=== PATIENT | female | born 1955 | race Two or more races ===

== ENCOUNTER 2018-03-20 11:54 | Inpatient (IN) | payer OTHER ==
[2018-03-20] VITALS (10 sets, daily range): BP systolic 123–187; BP diastolic 74–104
[~2018-03-20] VITALS: Ht 157.5 cm; Wt 57.5 kg
[2018-03-20] MEDS ORDERED: SODIUM CHLORIDE 0.9% 500 ML IVB ONE (12:08)
[2018-03-20] MEDS ORDERED: LEVOFLOXACIN 500 MG/100 ML PREMIX BAG IV ONE (12:15)
[2018-03-20 13:23] LABS: Partial Thromboplastin Time 22.2 sec (22.64-33.71); Prothrombin Time 10.9 sec (9.37-12.3)
[2018-03-20 13:25] LABS: Calcium 8.7 mg/dL (8.5-10.1); Potassium 3.6 mmol/L (3.5-5.1)
[2018-03-20 13:26] LABS: Blood Alcohol < 3.0 mg/dL (0-5); Magnesium 1.7 mg/dL (1.6-2.6)
[2018-03-20 13:28] LABS: Bilirubin, Total 0.4 mg/dL (0.2-1.0); Total Protein 7.6 g/dL (6.4-8.2)
[2018-03-20 13:29] LABS: Lactic Acid w/Reflex 4.6 mmol/L (0.4-2.0)
[2018-03-20] MEDS ORDERED: cefTRIAXone 1GM/10ml IVPUSH 10 ML IV ONE (13:45)
[2018-03-20] MEDS ORDERED: MORPHINE SULFATE 4 MG/ML SYR/VIAL IV PRN ×2 (13:45)
[2018-03-20] MEDS ORDERED: NITROGLYCERIN 0.4 MG SL TAB SL PRN (13:45)
[2018-03-20] MEDS ORDERED: TEMAZEPAM 15 MG CAP PO PRN (13:45)
[2018-03-20] MEDS ORDERED: ACETAMINOPHEN 500 MG TAB PO PRN (13:45)
[2018-03-20] MEDS ORDERED: PROMETHAZINE HCL 25 MG/ML 1ML IV PRN (13:45)
[2018-03-20] MEDS ORDERED: HYDROcodone-ACET 5/325MG TAB PO PRN (13:45)
[2018-03-20] MEDS ORDERED: LACTULOSE 20Gm/30ML SOLN PO PRN (13:45)
[2018-03-20] MEDS ORDERED: DEXTROSE (50%) 50ML SYRG IV PRN ×2 (13:45→14:00)
[2018-03-20] MEDS ORDERED: LORazepam 0.5 MG TAB PO PRN (13:45)
[2018-03-20 14:07] LABS: Basophils # (auto) 0 uL; Basophils % (auto) 0.1 % (0.0-2.0); Eosinophils # (auto) 0 uL; Hematocrit 39.7 % (36.0-46.0); Hemoglobin 13.2 g/dL (12.2-16.2); Lymphocytes # (auto) 0.7 uL; Lymphocytes % (auto) 3.7 % (10.0-50.0); Mean Corpuscular Hgb Conc. 33.3 g/dL (32.0-36.0); Monocytes # (auto) 0.8 uL; Monocytes % (auto) 4.5 % (0.0-12.0); Neutrophils # (auto) 16.3 uL; Neutrophils % (auto) 91.7 % (37.0-80.0); Platelet Count (auto) 229 10^3/uL (140-450); Red Blood Cells 4.41 10^6/uL (4.0-5.20); Red Cell Distribution Width 12.4 % (11.8-14.3); White Blood Cell 17.7 10^3/uL (4.4-10.8)
[2018-03-20] MEDS: SODIUM CHLORIDE 0.9% 1,000 ML IV SCH ×2 (14:40→23:41)
[2018-03-20] MEDS: ASPirin 81 mg TAB PO ONE ×2 (14:48→18:02)
[2018-03-20] MEDS: InsuLIN REG 1unit/0.01ml Soln (100units/ml) SC SCH ×2 (16:00→20:00)
[2018-03-20] MEDS ORDERED: InsuLIN REG 1unit/0.01ml Soln (100units/ml) SC SCH (16:00)
[2018-03-20 16:01] LABS: Folate (Folic Acid) 6.93 ng/mL (5.38-24)
[2018-03-20] MEDS ORDERED: METF-372 PO (17:01)
[2018-03-20] MEDS ORDERED: CALC600T10 OR (17:01)
[2018-03-20] MEDS ORDERED: CLOP75TA41 PO (17:01)
[2018-03-20] MEDS ORDERED: ATOR1TAB PO (17:01)
[2018-03-20] MEDS ORDERED: GLIP-115 PO (17:01)
[2018-03-20] MEDS ORDERED: METO25TA5 PO (17:01)
[2018-03-20] MEDS ORDERED: ALEN35TA18 PO (17:01)
[2018-03-20] MEDS ORDERED: ASPI81CH43 PO (17:01)
[2018-03-20] MEDS: ENOXAPARIN SOD 40 MG/0.4 ML SYRINGE SC SCH (18:02)
[2018-03-20] MEDS: ACCU-CHEK COMFORT CURVE STRIP VI SCH ×2 (18:03→20:16)
[2018-03-20 18:39] LABS: Urine Bacteria NONE SEEN /hpf (None Seen); Urine Blood 1+ /uL (Negative); Urine Specific Gravity 1.013 (1.001-1.035); Urine WBC 2 /hpf (0 - 5)
[2018-03-20 18:45] LABS: Alcohol, Urine < 3.0 mg/dL (0-5); Amphetamine Screen, Urine NEGATIVE (NEGATIVE); Barbiturate Scree,Urine NEGATIVE (NEGATIVE); Benzodiazephine Screen, Urine NEGATIVE (NEGATIVE); Cannabinoid Screen, Urine NEGATIVE (NEGATIVE); Cocaine Screen, Urine NEGATIVE (NEGATIVE); Opiate Scree,Urine NEGATIVE (NEGATIVE); Phencyclidine Screen, Urine NEGATIVE (NEGATIVE)
[2018-03-20] MEDS ORDERED: LORazepam 2MG/ML-1ML VIAL IV STA (19:02)
[2018-03-20] MEDS ORDERED: LORazepam 2MG/ML-1ML VIAL ONE (19:09)
[2018-03-20] MEDS ORDERED: PHENYTOIN IV DILANTIN 1,000 MG in SODIUM CHL 0.9% 250 ML IV ONE (19:15)
[2018-03-20] MEDS ORDERED: LORazepam 2MG/ML-1ML VIAL IV PRN ×2 (19:15→19:45)
[2018-03-20] MEDS: PHENYTOIN SODIUM 50 MG/ML 2ML VIAL IV SCH (22:13)
[2018-03-20] MEDS: ATORVASTATIN 20 MG TAB PO SCH (22:13)
[2018-03-21] VITALS (24 sets, daily range): BP systolic 99–151; BP diastolic 53–96
[2018-03-21] MEDS: LABETALOL HCL 5 MG/ML ML 20ML VIAL IV PRN (01:40)
[2018-03-21] MEDS: InsuLIN REG 1unit/0.01ml Soln (100units/ml) SC SCH ×6 (04:00→20:15)
[2018-03-21] MEDS: ACCU-CHEK COMFORT CURVE STRIP VI SCH ×6 (04:00→20:15)
[2018-03-21] MEDS: PHENYTOIN SODIUM 50 MG/ML 2ML VIAL IV SCH ×2 (05:52→14:00)
[2018-03-21 07:35] LABS: BUN/Creatinine Ratio 6.6; Calcium 7.8 mg/dL (8.5-10.1); Potassium 3.3 mmol/L (3.5-5.1)
[2018-03-21 07:38] LABS: Bilirubin, Total 0.5 mg/dL (0.2-1.0); Total Protein 7.9 g/dL (6.4-8.2)
[2018-03-21] MEDS ORDERED: cefTRIAXone 1GM/10ml IVPUSH 10 ML IV SCH (09:00)
[2018-03-21] MEDS: ENOXAPARIN SOD 40 MG/0.4 ML SYRINGE SC SCH (10:15)
[2018-03-21] MEDS: ASPirin 81 mg TAB PO SCH (10:15)
[2018-03-21] MEDS: SODIUM CHLORIDE 0.9% 1,000 ML IV SCH (10:24)
[2018-03-21 14:00] LABS: Cholesterol 99 mg/dL (< 200); HDL Cholesterol 38 mg/dL (40-59); LDL Cholesterol 57 mg/dL (< 100); Triglycerides 105 mg/dL (< 150)
[2018-03-21] MEDS: D5W/ SOD CHL 0.9%/KCL 20MEQ 1,000 ML IV SCH ×2 (14:30→22:03)
[2018-03-21] MEDS ORDERED: MORPHINE SULFATE 8mg/ml INJ SDV IV PRN (16:15)
[2018-03-21] MEDS: CLOPIDOGREL BISULFATE 75 MG TAB PO SCH (16:46)
[2018-03-21] MEDS: ATORVASTATIN 20 MG TAB PO SCH (22:04)
[2018-03-22] MEDS: InsuLIN REG 1unit/0.01ml Soln (100units/ml) SC SCH ×6 (04:00→19:55)
[2018-03-22] MEDS: ACCU-CHEK COMFORT CURVE STRIP VI SCH ×6 (04:39→19:54)
[2018-03-22 05:00] VITALS: BP 135/64
[2018-03-22 06:57] LABS: Basophils # (auto) 0 uL; Basophils % (auto) 0.4 % (0.0-2.0); Eosinophils # (auto) 0.1 uL; Eosinophils % (auto) 0.7 % (0.0-7.0); Hematocrit 35.2 % (36.0-46.0); Hemoglobin 12.1 g/dL (12.2-16.2); Lymphocytes # (auto) 1.7 uL; Lymphocytes % (auto) 20.1 % (10.0-50.0); Mean Corpuscular Hemoglobin 30.1 pg (28.0-32.0); Mean Corpuscular Hgb Conc. 34.3 g/dL (32.0-36.0); Mean Corpuscular Volume 87.6 fL (80.0-100.0); Monocytes # (auto) 0.7 uL; Monocytes % (auto) 8.1 % (0.0-12.0); Neutrophils % (auto) 70.7 % (37.0-80.0); Platelet Count (auto) 240 10^3/uL (140-450); Red Blood Cells 4.02 10^6/uL (4.0-5.20); Red Cell Distribution Width 12.3 % (11.8-14.3); White Blood Cell 8.4 10^3/uL (4.4-10.8)
[2018-03-22 07:19] LABS: BUN/Creatinine Ratio 5.3; Calcium 7.5 mg/dL (8.5-10.1); Magnesium 1.6 mg/dL (1.6-2.6); Potassium 3.1 mmol/L (3.5-5.1)
[2018-03-22 09:00] VITALS: BP 125/75
[2018-03-22] MEDS: ENOXAPARIN SOD 40 MG/0.4 ML SYRINGE SC SCH (09:53)
[2018-03-22] MEDS: POTASSIUM CHL 20 Meq TABLET PO SCH ×2 (09:53→21:34)
[2018-03-22] MEDS: CLOPIDOGREL BISULFATE 75 MG TAB PO SCH (09:53)
[2018-03-22] MEDS: ASPirin 81 mg TAB PO SCH (09:53)
[2018-03-22 16:55] VITALS: BP 144/69
[2018-03-22] MEDS: D5W/ SOD CHL 0.9%/KCL 20MEQ 1,000 ML IV SCH ×2 (18:00→18:20)
[2018-03-22] MEDS: ATORVASTATIN 20 MG TAB PO SCH (21:33)
[2018-03-22 22:07] VITALS: BP 140/81
[2018-03-23] MEDS: ACCU-CHEK COMFORT CURVE STRIP VI SCH ×7 (00:09→23:56)
[2018-03-23] MEDS: D5W/ SOD CHL 0.9%/KCL 20MEQ 1,000 ML IV SCH ×2 (03:05→21:14)
[2018-03-23] MEDS: InsuLIN REG 1unit/0.01ml Soln (100units/ml) SC SCH ×7 (03:58→23:56)
[2018-03-23 05:37] VITALS: BP 148/65
[2018-03-23 05:59] LABS: Basophils # (auto) 0.1 uL; Basophils % (auto) 0.8 % (0.0-2.0); Eosinophils # (auto) 0.2 uL; Hemoglobin 12.2 g/dL (12.2-16.2); Lymphocytes # (auto) 2.5 uL; Mean Corpuscular Hemoglobin 30.5 pg (28.0-32.0); Mean Corpuscular Hgb Conc. 34.8 g/dL (32.0-36.0); Mean Corpuscular Volume 87.6 fL (80.0-100.0); Monocytes # (auto) 0.7 uL; Monocytes % (auto) 8.9 % (0.0-12.0); Neutrophils # (auto) 3.9 uL; Neutrophils % (auto) 53.3 % (37.0-80.0); Platelet Count (auto) 254 10^3/uL (140-450); Red Cell Distribution Width 12.8 % (11.8-14.3); White Blood Cell 7.3 10^3/uL (4.4-10.8)
[2018-03-23 06:22] LABS: BUN/Creatinine Ratio 4.2; Calcium 8.2 mg/dL (8.5-10.1); Potassium 4.4 mmol/L (3.5-5.1)
[2018-03-23 09:00] VITALS: BP 138/78
[2018-03-23] MEDS: CLOPIDOGREL BISULFATE 75 MG TAB PO SCH (10:06)
[2018-03-23] MEDS: ASPirin 81 mg TAB PO SCH (10:06)
[2018-03-23] MEDS: ENOXAPARIN SOD 40 MG/0.4 ML SYRINGE SC SCH (10:06)
[2018-03-23 13:00] VITALS: BP 163/79
[2018-03-23 17:00] VITALS: BP 164/83
[2018-03-23 21:05] VITALS: BP 145/91
[2018-03-23] MEDS: PHENYTOIN SODIUM 100 MG CAP PO SCH (22:04)
[2018-03-23] MEDS: ATORVASTATIN 20 MG TAB PO SCH (22:04)
[2018-03-24] MEDS: InsuLIN REG 1unit/0.01ml Soln (100units/ml) SC SCH ×5 (04:30→19:54)
[2018-03-24] MEDS: ACCU-CHEK COMFORT CURVE STRIP VI SCH ×5 (04:30→19:53)
[2018-03-24 05:15] VITALS: BP 160/91
[2018-03-24] MEDS: LABETALOL HCL 5 MG/ML ML 20ML VIAL IV PRN ×3 (06:28→22:05)
[2018-03-24 06:33] LABS: Basophils # (auto) 0.1 uL; Basophils % (auto) 0.9 % (0.0-2.0); Eosinophils # (auto) 0.3 uL; Eosinophils % (auto) 4.2 % (0.0-7.0); Hematocrit 36.7 % (36.0-46.0); Hemoglobin 12.9 g/dL (12.2-16.2); Lymphocytes # (auto) 2.5 uL; Lymphocytes % (auto) 38.5 % (10.0-50.0); Mean Corpuscular Hemoglobin 30.9 pg (28.0-32.0); Mean Corpuscular Hgb Conc. 35.1 g/dL (32.0-36.0); Mean Corpuscular Volume 88.1 fL (80.0-100.0); Monocytes # (auto) 0.5 uL; Neutrophils # (auto) 3.1 uL; Neutrophils % (auto) 48.4 % (37.0-80.0); Nucleated Red Blood Cells % 0.1 %; Platelet Count (auto) 266 10^3/uL (140-450); Red Blood Cells 4.17 10^6/uL (4.0-5.20); Red Cell Distribution Width 12.6 % (11.8-14.3); White Blood Cell 6.4 10^3/uL (4.4-10.8)
[2018-03-24 06:48] LABS: Calcium 8.5 mg/dL (8.5-10.1); Potassium 4.1 mmol/L (3.5-5.1)
[2018-03-24 06:57] LABS: BUN/Creatinine Ratio 3.8
[2018-03-24 08:55] VITALS: BP 140/94
[2018-03-24] MEDS: CLOPIDOGREL BISULFATE 75 MG TAB PO SCH (09:09)
[2018-03-24] MEDS: ENOXAPARIN SOD 40 MG/0.4 ML SYRINGE SC SCH (09:09)
[2018-03-24] MEDS: ASPirin 81 mg TAB PO SCH (09:09)
[2018-03-24] MEDS: D5W/ SOD CHL 0.9%/KCL 20MEQ 1,000 ML IV SCH ×2 (10:37→19:53)
[2018-03-24 13:00] VITALS: BP 163/86
[2018-03-24 13:30] VITALS: BP 163/86
[2018-03-24 17:20] VITALS: BP 137/87
[2018-03-24] MEDS: Boost Glucose Control 8 Ounces PO SCH (18:56)
[2018-03-24] MEDS: PHENYTOIN SODIUM 100 MG CAP PO SCH (22:04)
[2018-03-24] MEDS: ATORVASTATIN 20 MG TAB PO SCH (22:04)
[2018-03-25] VITALS (7 sets, daily range): BP systolic 143–152; BP diastolic 44–91
[2018-03-25] MEDS: ACCU-CHEK COMFORT CURVE STRIP VI SCH ×6 (00:05→21:41)
[2018-03-25] MEDS: InsuLIN REG 1unit/0.01ml Soln (100units/ml) SC SCH ×6 (04:31→20:00)
[2018-03-25] MEDS: D5W/ SOD CHL 0.9%/KCL 20MEQ 1,000 ML IV SCH ×2 (04:31→21:40)
[2018-03-25 06:29] LABS: Basophils # (auto) 0.1 uL; Basophils % (auto) 0.9 % (0.0-2.0); Eosinophils # (auto) 0.3 uL; Eosinophils % (auto) 4.6 % (0.0-7.0); Hematocrit 38.8 % (36.0-46.0); Hemoglobin 13.5 g/dL (12.2-16.2); Lymphocytes # (auto) 2.5 uL; Lymphocytes % (auto) 37.5 % (10.0-50.0); Mean Corpuscular Hgb Conc. 34.8 g/dL (32.0-36.0); Mean Corpuscular Volume 89.1 fL (80.0-100.0); Monocytes # (auto) 0.5 uL; Monocytes % (auto) 7.8 % (0.0-12.0); Neutrophils # (auto) 3.3 uL; Neutrophils % (auto) 49.2 % (37.0-80.0); Nucleated Red Blood Cells % 0.1 %; Platelet Count (auto) 309 10^3/uL (140-450); Red Blood Cells 4.36 10^6/uL (4.0-5.20); Red Cell Distribution Width 12.6 % (11.8-14.3); White Blood Cell 6.7 10^3/uL (4.4-10.8)
[2018-03-25 06:44] LABS: Calcium 8.9 mg/dL (8.5-10.1); Potassium 4.1 mmol/L (3.5-5.1)
[2018-03-25 06:47] LABS: BUN/Creatinine Ratio 4.3
[2018-03-25] MEDS: Boost Glucose Control 8 Ounces PO SCH ×2 (07:46→17:17)
[2018-03-25] MEDS: CLOPIDOGREL BISULFATE 75 MG TAB PO SCH (12:52)
[2018-03-25] MEDS: ASPirin 81 mg TAB PO SCH (12:52)
[2018-03-25] MEDS: ENOXAPARIN SOD 40 MG/0.4 ML SYRINGE SC SCH (12:54)
[2018-03-25] MEDS: PHENYTOIN SODIUM 100 MG CAP PO SCH (21:41)
[2018-03-25] MEDS: ATORVASTATIN 20 MG TAB PO SCH (21:42)
[2018-03-26] MEDS: ACCU-CHEK COMFORT CURVE STRIP VI SCH ×5 (00:14→16:00)
[2018-03-26] MEDS: D5W/ SOD CHL 0.9%/KCL 20MEQ 1,000 ML IV SCH ×2 (02:34→12:07)
[2018-03-26] MEDS: InsuLIN REG 1unit/0.01ml Soln (100units/ml) SC SCH ×5 (04:00→17:44)
[2018-03-26 04:54] VITALS: BP 146/76
[2018-03-26 06:52] LABS: Basophils # (auto) 0.1 uL; Eosinophils # (auto) 0.2 uL; Eosinophils % (auto) 1.8 % (0.0-7.0); Hematocrit 38.8 % (36.0-46.0); Hemoglobin 13.6 g/dL (12.2-16.2); Lymphocytes # (auto) 1.8 uL; Lymphocytes % (auto) 20.7 % (10.0-50.0); Mean Corpuscular Hemoglobin 31.4 pg (28.0-32.0); Mean Corpuscular Hgb Conc. 35.2 g/dL (32.0-36.0); Mean Corpuscular Volume 89.1 fL (80.0-100.0); Monocytes # (auto) 0.6 uL; Monocytes % (auto) 7.2 % (0.0-12.0); Neutrophils % (auto) 69.3 % (37.0-80.0); Nucleated Red Blood Cells % 0.1 %; Platelet Count (auto) 329 10^3/uL (140-450); Red Blood Cells 4.35 10^6/uL (4.0-5.20); Red Cell Distribution Width 12.5 % (11.8-14.3); White Blood Cell 8.6 10^3/uL (4.4-10.8)
[2018-03-26 07:02] LABS: Potassium 4.2 mmol/L (3.5-5.1)
[2018-03-26 07:16] LABS: BUN/Creatinine Ratio 8.8; Calcium 8.9 mg/dL (8.5-10.1)
[2018-03-26] MEDS: Boost Glucose Control 8 Ounces PO SCH ×2 (08:00→18:00)
[2018-03-26 09:18] VITALS: BP 141/96
[2018-03-26] MEDS: ASPirin 81 mg TAB PO SCH (11:01)
[2018-03-26] MEDS: CLOPIDOGREL BISULFATE 75 MG TAB PO SCH (11:01)
[2018-03-26] MEDS: ENOXAPARIN SOD 40 MG/0.4 ML SYRINGE SC SCH (11:01)
[2018-03-26 13:37] VITALS: BP 134/84
[2018-03-26 17:09] VITALS: BP 145/77
== END 2018-03-26 19:04 | disposition home or self-care (01) | DRG 871 ==
LOC: ER 11:54 → EDBD 11:54 → TELE 11:55 → TELE-CENTR 15:43 → ICU WEST 21:07 → TELE-CENTR 03-21 21:43 → CENTRAL 03-21 21:44 → TELE-CENTR 03-24 00:10
PROVIDERS: ADMIT Internal Medicine; ATTEND Internal Medicine
DX: A41.9 Sepsis, unspecified organism (principal); I21.4 Non-ST elevation (NSTEMI) myocardial infarction; E87.2 Acidosis; G93.41 Metabolic encephalopathy; G40.801 Other epilepsy, not intractable, with status epilepticus; E87.1 Hypo-osmolality and hyponatremia; R47.01 Aphasia; E11.65 Type 2 diabetes mellitus with hyperglycemia; T42.0X5A Adverse effect of hydantoin derivatives, initial encounter; E78.5 Hyperlipidemia, unspecified; E87.6 Hypokalemia; I10 Essential (primary) hypertension; R32 Unspecified urinary incontinence; E83.51 Hypocalcemia; Z86.73 Personal history of transient ischemic attack (TIA), and cerebral infarction without residual deficits; Z79.02 Long term (current) use of antithrombotics/antiplatelets; Z79.82 Long term (current) use of aspirin; Z79.899 Other long term (current) drug therapy
CPT/HCPCS: 36415; 70450; 71045; 80048; 80053; 80061; 80185; 80307; 80320; 81001; 82550; 82607; 82746; 82962; 83036; 83605; 83735; 83880; 84443; 84484; 85025; 85610; 85652; 85730; 87040; 87086; 93005; 93306; 93886; 95819; 96361; 96365; 96367; 96375; 97116; 97163; 97530; J1815; J1956